=== PATIENT | female | born 1995 | race Caucasian/White ===

== ENCOUNTER 2017-01-19 18:22 | Emergency (ER) | payer SELFPAY ==
[~2017-01-19] VITALS: Ht 157.5 cm; Wt 62.0 kg
[2017-01-19 18:25] VITALS: BP 103/63
== END 2017-01-19 19:15 | disposition left against medical advice (07) ==
LOC: ER 19:05
DX: Z53.21 Procedure and treatment not carried out due to patient leaving prior to being seen by health care provider (principal); F12.10 Cannabis abuse, uncomplicated

== ENCOUNTER 2019-11-11 22:18 | Emergency (ER) | payer OTHER, MEDICAID ==
[~2019-11-11] VITALS: Ht 160 cm; Wt 59.1 kg
[2019-11-11] MEDS ORDERED: ONDANSETRON 4MG ODT PO SCH (23:39)
[2019-11-11] MEDS ORDERED: CLONAZEPAM 1MG TABLET PO SCH (23:45)
[2019-11-12 00:06] VITALS: BP 110/62
== END 2019-11-12 00:12 | disposition home or self-care (01) ==
LOC: ER 22:18
DX: J06.9 Acute upper respiratory infection, unspecified (principal); M79.18 Myalgia, other site; F11.20 Opioid dependence, uncomplicated; Z03.818 Encounter for observation for suspected exposure to other biological agents ruled out
CPT/HCPCS: 87635; 99283; Q0162